=== PATIENT | male | born 1960 | race Caucasian/White ===

== ENCOUNTER 2022-12-26 00:24 | Outpatient (CLI) | payer MEDICAID, SELFPAY ==
--- NOTE | 2022-12-26 09:45 | DI.RAD_ITS ---
Exam(s) RF MODIFIED SPEECH BA SWALLOW TECHNIQUE: Modified barium swallow was performed in conjunction with speech pathology. CONTRAST MATERIAL: Multiple consistencies of barium contrast were administered. COMPARISON: No exams were available for comparison FINDINGS: Note that this is not a dedicated esophagram, distal esophagus not evaluated. Significant vallecular pooling was demonstrated with multiple consistencies. Mild laryngeal penetrat ion observed with thin liquid. Detailed speech pathology report to follow. . .. RADIATION DOSE DELIVERED: johnna Palacio=13.5 mGy
[2022-12-26] MEDS: Barium Sulfate 81% w/w for Oral Suspension 148 GM BTL PO (09:51)
[2022-12-26] MEDS: Barium Sulfate 40% W/V 1500 CPS 250 ML BTL PO (09:54)
[2022-12-26] MEDS: Barium Sulfate 40% W/V 240 ML BTL PO (09:54)
[2022-12-26] MEDS: Barium Sulfate Oral Paste 40% W/V 230 ML TUBE PO (09:55)
--- NOTE | 2022-12-26 12:11 | ST.MBS_ITS ---
Date of Service Date of service: 12/26/22 Time of Service: 09:00 Modified Barium Swallow Study Findings: Video fluoroscopic Swallowing Evaluation (VFSE) / Modified Barium Swallow Study (MBSS) Speech Language Pathology Report Patient referred for VFSE/MBSS from Dr. Edwards ([facility]) given dysphagia in setting of hyperpharyngeal cancer and velo-pharyngeal insufficiency. 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 He had a 50lb loss prior to start of treatment, but has gained some back. He was seen inpatient in [place] by [employer]PER [facility]PER[facility] who recommended nectar thick liquids to him but at home he has been having honey thick. He will have mediport placed next week and is awaiting start of chemoradiotherapy at [facility] where he is followed by this [facility]KEEPER SUPERVISOR. [facility] Medical History?(Updated 12/27/22 @ 09:34 by Julianna Olivier NP) Adult failure to thrive H/O alcohol abuse Hernia Oropharyngeal cancer PTSD (post-traumatic stress disorder) Surgical History?(Updated 12/23/22 @ 10:23 by Yelitza Fernandez) H/O abdominal surgery H/O endoscopy IMPRESSIONS: Severe oropharyngeal dysphagia. Characterized primarily by absent posterior pharyngeal wall movement in the hyperpharynx, absent epiglottic inversion, as well as near-absent tongue base retraction. Velar elevation is also reduced, as is duration and extent of UES distension. All of these in combination significantly alter the pressure dynamics during the swallowing resulting in severe stasis of thick>liquid as well as puree textures in the hyperpharynx. Patient relies solely on gravity at this time to move bolus through hyperpharynx and benefits from posterior head tilt to encourage further posterior/inferior transit past & over the valleculae. Fortunately, the patient's laryngeal and hyoid movement appear to be relatively preserved at this time, he is likely only at risk penetration and microaspirations with liquids at this time which are cleared effectively with gentle throat clear strategy. Aspiration and deep penetration noted was largely on residue spilling over from valleculae after the swallow, therefore I think thin liquids will actually be his safest consistency at this time given higher viscosities resulted in greater amounts of residue. Patient appears to be at low-moderate risk for potential aspiration PNA and/or pulmonary compromise and high risk for malnutrition, high risk for dehydration. Diet modification is indicated; non-oral nutrition is indicated. Swallow prognosis is guarded given: extent of dysphagia present prior to cancer treatment, expected effects of radiotherapy. Positive prognostic factors: Age, Motivation, Family/caregiver support, Cognitive status, Negative prognostic factors: Severity, Relative dose of Chemotherapy and/or radiation treatment, Surgical/anatomical factors (tumor), and pending patient/caregiver training in risk management as outlined, including use of trialed compensatory strategies. Patient appears to be a good candidate for behavioral swallow rehabilitation. RECOMMENDATIONS: Diet Texture Recommendation:? IDDSI LEVEL SOLIDS 4-Pureed Solids - slick (like applesauce) 3-Liquidised Solids LIQUIDS 0-Thin Liquids Please see further details at?www.iddsi.org http://www.iddsi.org/ MEDICATIONS VIA ENTERAL ROUTE Diet texture modification is per patient's preference; please adjust diet textures at patient's discretion & collaboration with care team. Do not alter medications (e.g., cut)? without advice from your MD or pharmacist. Risk Management Strategies:? Behavioral reflux precautions, including upright position during + 90 mins after meals. Small bites, approx [id number] Perform posterior head tilt while swallowing. Remain with head tilted for several seconds, then re-swallow and repeat until sensation of residue has cleared. Very small sips, approx 5mL / teaspoon Perform gentle throat clears after liquid sips. Multiple swallows per bolus to encourage clearance of pharyngeal stasis/residue Alternate solids/liquids as able Control risk factors for aspiration pneumonia via (a) thorough oral hygiene & (b) maintaining physical mobility as tolerated PLAN: Therapy: Recommend subsequent outpatient session with [employer]KEEPER SUPERVISOR to review results of today's exam and develop treatment plan as appropriate. Goals: defer to [facility]EE[facility] SUPERVISOR plan of care Follow-up exam: Recommend repeat VFSE/MBSS upon completion of cancer treatment. ----- OBJECTIVE Videofluoroscopic Swallow Evaluation (VFSE/MBSS) was conducted in the lateral[ and [id number]] projection by Speech-Language Pathologist, in collaboration with Radiologist, to evaluate oropharyngeal swallow function. Anatomic view under fluoroscopy: Posterior prominences in proximal esophagus appearing to alter bolus flow (?osteophytes) PO Barium Contrast Trials Oral barium water-soluble contrast was administered as follows: IDDSI Level 0 Varibar thin liquid (40% w/v) IDDSI Level 2 Varibar nectar thick/mildly thick liquid (40% w/v) IDDSI Level 3 Varibar thin honey/liquidised/moderately-thick (40% w/v) IDDSI Level 4 Varibar pudding/pureed/extremely thick (40% w/v) No solid trials or barium tablet trials were administered do to severity of dysphagia. MBSImP Component Scores: COMPONENT Scale SCORE 1 Lip closure (0-4) 0 Resulted in no labial escape 2 Hold Position (0-3) 0 Maintained a cohesive bolus between tongue to palatal seal 3 Bolus Preparation (0-4) NA 4 Bolus Transport (0-4) 1 Demonstrated delayed initiation of tongue motion 5 Oral Residue (0-4) 1 Was a trace, lining oral structures 6 Swallow Initiation (0-4) 2 Occurred as bolus head at posterior laryngeal surface of epiglottis 7 Soft Palate Elevation (0-4) 2 Allowed escape to the nasopharynx 8 Laryngeal Elevation (0-3) 0 Demonstrated complete superior movement of thyro id cartilage with complete approximation of arytenoids to epiglottic petiole 9 Anterior Hyoid Motion (0-2) 0 Demonstrated complete anterior movement 10 Epiglottic Movement (0-2) 2 Resulted in no inversion 11 Laryngeal Closure (0-2) 1 Was incomplete with narrow a column of air/contra st in laryngeal vestibule 12 Pharyngeal Stripping Wave (0-2) 1 Was present, but diminished 13 Pharyngeal Contraction (0-3) NA 14 PES Opening (0-3) 1 Demonstrated partial distension/partial duration, with partial obstruction of flow 15 Tongue Base Retraction (0-4) 3 Allowed a wide column of contrast or air between the retracted tongue base and the posterior pharyngeal wall 16 Pharyngeal Residue (0-4) 4 Resulted from minimal to no pharyngeal clearance 17 Esophageal Clearance (0-4) NA Results: COMPONENT Scale SCORE 1 Oral Score (0-18) 3 2 Pharyngeal Score (0-29) 14 3 Esophageal Score (0-4) 0 Dysphagia Outcome and Severity Scale: COMPONENT l Scale SCORE 1 LEVEL (1-7) 2 Nonoral Nutrition Necessary - Moderate-severe dysphagia; Maxim um assistance or use of strategies with partial PO only (tolerates at least 1 consistency safely with total use of strategies) Penetration-Aspiration Scale: COMPONENT Scale SCORE 1 Thin liquid (1-8) 5 Contrast entered the airway, contacted the vocal folds, and was not ejected from the airway. 2 [place] thick (1-8) 3 Contrast entered the airway, remained above the vocal f olds, and was not ejected from the airway. 3 Honey thick (1-8) 1 Contrast did not enter the airway 4 Pudding thick (1-8) 1 Contrast did not enter the airway 5 Cookie (1-8) NA Functional Oral Intake Scale: COMPONENT Scale SCORE 1 Pre-Study (1-7) 2 Tube dependent with minimal/inconsistent oral intake 2 Post-Study (1-7) 2 Tube dependent with minimal/inconsistent oral intake DIGEST: COMPONENT Scale SCORE 1 Thin Max PAS (1-8) 5 Contrast entered the airway, contacted the vocal folds, and was not ejected from the airway. A 2 [place] Max PAS (1-8) 3 Contrast entered the airway, remained above the vocal folds, and was not ejected from the airway. 3 Honey Max PAS (1-8) 1 Contrast did not enter the airway 4 Liquid Max PAS (1-8) 5 Maximum PAS Score over all liquid trials 5 Liquid Max Residue (0-3) 2 50 - 90% 6 Pudding Max PAS (1-8) 1 Contrast did not enter the airway 7 Pudding Max Residue (0-3) 3 above 90% 8 Cracker Max PASA (1-8) NA 9 Cracker Max Residue (0-3) NA 10 Frequency if PAS >= 3 (0-3) 3 Chronic (50% or more of thin liquid trails and/or more than one consistency) 11 Amount if PAS >= 5 (0-1) 0I Not gross Results: COMPONENT Scale SCORE 1 SAFETY GRADE (0-4) 2 Safety grade for swallowing based on patterns of aspiration or laryngeal penetration 2 EFFICIENCY GRADE (0-4) 3 Efficiency grade of swallowing based on patterns of pharyngeal residue 3 DIGEST (0-4) 3 Severity grade of pharyngeal dysphagia: 0 - Normal, 1 - Mild, 2 - Moderate, 3 - Severe, 4 - Life threatening 4 Max Exam PAS (1-8) 5 Maximum PAS Score over all bolus trials 5 Max Exam Residue (0-3) 3 Maximum Exam Residue over all bolus trials Trialed Compensatory Strategies & Outcome: Maneuvers Successful (+) Unsuccessful (-) Postures Successful (+) Unsuccessful (-) 3 second Preparatory Set? ? +/- Chin Tuck Posture? ? - Cough? ? Posterior Head tilt?? ? + ? Reflexive? Cued? Throat Clear? ? Head Tilt to? Reflexive? Left? Cued? ? + (with liquids) ? Right? ? Saliva swallow? ? + Head Turn/Rotate to? B ? Supraglottic Swallow? Left? ? + Super-supraglottic Swallow? Right? ? Bolus Modifications Successful (+) Unsuccessful (-) Delivery/Alternating Consistencies ? Follow with Liquid Wash + (thin liquid) ? Follow with Solid Bolus? Delivery/Via Straw? ? Reduced Volume? ? + Reduced Rate of Intake? ? + (pause after primary swallow before swallowing again) Increased Viscosity? ? - Other:?? ? Thank you for allowing us to take part in this patient's care. Please feel free to contact the [facility] Speech Language Pathology Department with any questions/concerns. Coding CPT Codes MOTION FLUOROSCOPY/SWALLOW - [id number] ([id number])
== END 2022-12-26 00:44 ==
LOC: DI 00:24
PROVIDERS: PCP Internal Medicine; Visit Provider Speech-Language Pathologist
DX: R13.12 Dysphagia, oropharyngeal phase (principal)
CPT/HCPCS: 92611; 74221

== ENCOUNTER 2023-01-20 01:51 | Outpatient (RCR) | payer MEDICAID, SELFPAY ==
[2023-01-05] MEDS: Normal Saline Flush 10 ML SYR IVP (14:58)
[2023-01-05 15:17] LABS: Abs Immature Grans 0.01 10^3/uL (0.0-0.06); Absolute Basophil Count 0.03 10^3/uL (0.0-0.2); Absolute Eosinophil Count 0.11 10^3/uL (0.0-0.7); Absolute Lymphocyte Count 1.38 10^3/uL (1.2-3.4); Absolute Monocyte Count 0.52 10^3/uL (0.1-0.8); Absolute Neutrophil Count 3.95 10^3/uL (1.2-6.7); Basophils % 0.5; Eosinophils % 1.8; HCT 34.8 % (40.0-50.0); HGB 11.8 g/dL (13.5-17.5); Immature Grans % 0.2; MCH 33.8 pg (27.0-33.0); MCHC 33.9 % (32.0-36.0); MCV 100 fL (80-95); Monocytes % 8.7; Neutrophils % 65.8; Platelet Count 224 10^3/uL (130-400); RBC 3.49 10^6/uL (4.36-5.78); RDW 10.8 % (11.8-14.1); RDW-SD 39.5 fL
[2023-01-05 15:28] LABS: ALT 36 U/L (16-63); AST 26 U/L (15-37); Albumin 3.6 g/dL (3.4-5.0); Alkaline Phosphatase 86 U/L (46-116); Anion Gap 8.3 mmol/L (3-11); BUN 21 mg/dL (7-18); Bilirubin, Total 0.8 mg/dL (0.2-1.0); CO2 28.7 mmol/L (21.0-32.0); CREATININE 1.2 mg/dL (0.70-1.30); Chloride 102 mmol/L (98-107); Estimated GFR 68.38 (mL/min/1.73m2); Glucose 114 mg/dL (74-106); Magnesium 2.1 mg/dL (1.8-2.4); Potassium 3.6 mmol/L (3.5-5.1); Sodium 139 mmol/L (136-145); Total Protein 7.6 g/dL (6.4-8.2)
[2023-01-13] MEDS: Normal Saline Flush 10 ML SYR IVP (10:13)
[2023-01-13 10:18] LABS: Abs Immature Grans 0.01 10^3/uL (0.0-0.06); Absolute Basophil Count 0.02 10^3/uL (0.0-0.2); Absolute Eosinophil Count 0.04 10^3/uL (0.0-0.7); Absolute Lymphocyte Count 0.87 10^3/uL (1.2-3.4); Absolute Monocyte Count 0.38 10^3/uL (0.1-0.8); Absolute Neutrophil Count 3.53 10^3/uL (1.2-6.7); Basophils % 0.4; Eosinophils % 0.8; HCT 33.7 % (40.0-50.0); HGB 11.3 g/dL (13.5-17.5); Immature Grans % 0.2; Lymphocytes % 17.9; MCH 33.6 pg (27.0-33.0); MCHC 33.5 % (32.0-36.0); MCV 100 fL (80-95); MPV 11.1 fL (8.0-11.0); Monocytes % 7.8; Neutrophils % 72.9; Platelet Count 144 10^3/uL (130-400); RBC 3.36 10^6/uL (4.36-5.78); RDW 10.5 % (11.8-14.1); RDW-SD 38.9 fL; WBC 4.85 10^3/uL (4.4-10.8)
[2023-01-13 10:33] LABS: ALT 40 U/L (16-63); AST 25 U/L (15-37); Albumin 3.3 g/dL (3.4-5.0); Alkaline Phosphatase 65 U/L (46-116); Anion Gap 6.6 mmol/L (3-11); BUN 32 mg/dL (7-18); Bilirubin, Total 0.8 mg/dL (0.2-1.0); CO2 31.4 mmol/L (21.0-32.0); CREATININE 1.1 mg/dL (0.70-1.30); Calcium 8.8 mg/dL (8.5-10.1); Chloride 101 mmol/L (98-107); Glucose 117 mg/dL (74-106); Magnesium 2.1 mg/dL (1.8-2.4); Sodium 139 mmol/L (136-145)
== END 2023-01-23 23:59 | disposition home or self-care (01) ==
LOC: INF 01:51
PROVIDERS: PCP Internal Medicine; Visit Provider Preventive Medicine Undersea and Hyperbaric Medicine
DX: Z45.2 Encounter for adjustment and management of vascular access device (principal); C10.9 Malignant neoplasm of oropharynx, unspecified
CPT/HCPCS: 36591; 80053; 83735; 85025

== ENCOUNTER 2023-01-20 16:21 | Observation (INO) | payer MEDICAID, SELFPAY ==
[2023-01-20] VITALS (26 sets, daily range): BP systolic 118–148; BP diastolic 67–95; PULSE 81–110; RESP 9–26; TEMP 36.5–38.6; O2SAT 95–100
--- NOTE | 2023-01-20 16:30 | DI.CT_ITS ---
Exam(s) CT NECK W EXAM: CT NECK W CLINICAL HISTORY: right submaxiallry swelling tenderness. TECHNIQUE: Imaging Protocol: Axial computed tomography images with coronal and sagittal reformatted images were created and reviewed. CONTRAST MATERIAL: Intravenous: Omnipaque 350 Contrast volume:100mL COMPARISON: RF RF MODIFIED SPEECH BA SWALLOW from 12/26/2022 FINDINGS: Orbits and orbital soft tissues: Within normal limits. Visualized paranasal sinuses: Within normal limits. Nasopharynx: There is mucosal thickening seen in the maxillary sinuses bilaterally. Rounded soft ti ssues present which may reflect mucous retention cysts or polyps in the maxillary sinuses. The remai chanell visualized paranasal sinuses and mastoid air cells are clear. Oropharynx: Within normal limits. Hypopharynx: There is asymmetric enlargement of the right palatine tonsillar tissues. Larynx: Within normal limits. Retropharyngeal space: Within normal limits. Parotids/submandibular: The right submandibular gland is smaller than the left.. There is asymmetri c enlargement and heterogeneity of the right parotid gland. The left parotid gland is unremarkable. There is a 3 mm calcification on the right side in the floor the mouth. Thyroid gland: Within normal limits. Lymphadenopathy: There is scattered lymph nodes seen along the level one to level three all measurin g less than 8 mm in short axis diameter which are physiologic in nature. Trachea: Within normal limits. Lung apices: Within normal limits. Bones: Within normal limits for the patient's age. No aggressive osseous lesions are seen. Carotids/Jugular: Within normal limits. Soft tissues: There is asymmetric thickening of the right platysma with infiltration of the subcuta neous fat extending from the parotid gland into the submental region. No focal wall enhancing lesion is seen to suggest an abscess. There are mildly enlarged lymph nodes in the neck which are likely r eactive. There is a right-sided infusion port. IMPRESSION: 1. Enlarged heterogeneous right parotid gland with infiltration of the subcutaneous tissues extending from the parotid gland to the submental region. There is also asymmetric thickening of the right pl atysma. Mildly enlarged lymph nodes are seen in the neck predominantly on the right. The findings r aise a question inflammatory/infectious process. This may represent an acute right parotiditis. 2. 3 mm calcification in the right floor the mouth. This may represent a calculus. 3. Asymmetric enlargement of the right palatine tonsils. This may be an infectious or inflammatory p rocess. Neoplastic process cannot be excluded. Please correlate clinically. ENT consult may be con sidered for further evaluation. RADIATION DOSE DELIVERED: 634.16mGy.cm Total DLP 634.16mGy.cm Total DLP DATA REPOSITORY: All CT scans at this facility are submitted to the National Radiology Data Registry (NRDR) Dose Index Registry (DIR) with the [employer] (A[employer]). RADIATION OPTIMIZATION: All CT scans at this facility use at least one of these dose optimization te chniques: automated exposure control; mA and/or kV adjustment per patient size (includes targeted exa ms where dose is matched to clinical indication); or iterative reconstruction.
--- NOTE | 2023-01-20 17:05 | ED.GENADUL_ITS ---
Discharge Plan Disposition Patient Disposition: Admit to [facility] Discharge Details Clinical Impression: Infectious parotitis, Oropharyngeal cancer Primary Care Provider: Rahul Green ED Provider: Dandre Greene Home Meds and New Rx's Prescriptions: Continued acetaminophen 650 mg/20.3 mL suspension 650 mg PO Q6H PRN chlorhexidine gluconate 0.12 % mouthwash 15 ml mucous membrane DAILY Patient Comments: not taking ibuprofen 100 mg/5 mL suspension 200 mg PO Q6H cephalexin 500 mg capsule 500 mg PO QID Patient Comments: not on med list sennosides [senna] 8.8 mg/5 mL syrup 8.8 mg PO BID PRN (Reason: constipation) Qty: 200 2RF Patient Comments: not on [facility] med list acetaminophen 500 mg/15 mL liquid 500 - 1,000 mg PO Q6H PRN (Reason: fever or pain) Qty: 237 2RF oxycodone 5 mg tablet 5 mg PO BID MDD 15mg PRN (Reason: pain) Qty: 60 0RF olanzapine 5 mg Tablet 5 mg feeding tube DAILY oxycodone 5 mg/5 mL Solution 5 mg feeding tube Q6H PRN pantoprazole [address] For Susp In Packet 40 mg feeding tube DAILY fentanyl 25 mcg/hr patch 72 hour 2 patch transdermal Q72H MDD 1 patch Medical Decision Making Patient presents emergency department with a swollen right parotid gland that is progressing tender with generalized malaise and he is warm he is afebrile. Most likely this is bacterial. Diabetes and the patient had a CT scan of the neck and soft tissues which shows inflammation of the right parotid gland with surrounding erythema. Kayli was evaluated by me he does not have a high white count although he is getting chemotherapy but he has a left shift. Lactic acid was negative. He was giving IV fluids with vancomycin intravenously for he fa iled outpatient therapy with cephalexin. He will be need to be admitted to the hospital for continuation of IV vancomycin therapy to make sure that the gland inflammation reduces. Differential Diagnosis Differential Diagnosis: 1. Viral parotidis 2. Bacterial parotidis,3, abscess Medical Records Medical records reviewed: Yes I reviewed the patient's medical records. Imaging Data Radiologic Study: Imaging: CT Scan My impression: Uniform inflammation of the parotid gland on the right side of his face with swelling of the soft tissues Radiologist's impression: Cory Burroughs W??62??M??1960 ? Allergy/Adv: No Known Allergies Close Emergency Room Visit Notes (Draft) Dandre Greene - 01/20/23 17:05 Speech Modified Barium Swallow (Signed) Katharine Pantoja - 12/26/22 12:11 Audiology Office Visit (Signed) Yvonne Hawknis - 12/25/22 14:36 Palliative Care Note (Signed) Julianna Olivier - 12/24/22 15:21 Audiogram 12/24/22 Radiology Report (Signed) vrad,Reports - 01/20/23 18:[address] 01/20/23 16:30 Patient Name: Cory Burroughs Unit #: [id number] Loc: ER ? Ordering Provider:? Status: REG ER ? Primary Care Provider: Rahul Green Date of Exam: 01/20/23 Sex: M ? : 1960 Age: 62 ? Exam(s) PROCEDURE INFORMATION: Exam: CT Neck With Contrast Exam date and time: 01/20/2023 6:08 PM Age: 62 years old Clinical indication: Other: Right submaxillary swelling tenderness TECHNIQUE: Imaging protocol: Computed tomography of the neck with contrast. Radiation optimization: All CT scans at this facility use at least one of these dose optimization techniques: automated exposure control; mA and/or kV adjustment per patient size (includes targeted exams where dose is matched to clinical indication); or iterative reconstruction. Contrast material: OMNIPAQUE 350; Contrast volume: 100 ml; Contrast route: INTRAVENOUS (IV);? COMPARISON: RF MODIFIED SPEECH BA SWALLOW 12/26/2022 9:14 AM FINDINGS: Right Port-A-Cath partially visualized Pharynx:? Question mild asymmetric thickening in the right palatine tonsillar tissues. Larynx: Unremarkable. Epiglottis is normal. Prevertebral and retropharyngeal spaces: Unremarkable. Salivary glands:? Enlargement of the right parotid gland with increased attenuation and surrounding infiltration. Thickening of the overlying capsule and fluid extending into the right submandibular space. No mass identified.? Right submandibular gland appears atrophic. Possible calculus versus calcification in the right floor of mouth image 400 series 4. Left-sided parotid and submandibular glands are unremarkable Thyroid: Normal. No enlarged or calcified nodules.? Lymph nodes:? Prominent right submandibular lymph nodes. No lymphadenopathy. Trachea: Visualized trachea is unremarkable. Lungs: Unremarkable as visualized. Bones/joints: Unremarkable. No acute fracture. Soft tissues: Unremarkable. No significant soft tissue swelling. IMPRESSION: Findings suspect for right-sided parotiditis with fluid/inflammatory change tracking into the right submandibular space. Prominent right submandibular lymph nodes are presumed reactive Question asymmetric soft tissue in the right palatine tonsillar region. Correlation with direct inspection recommended. Local recurrence can not be completely excluded Right floor of mouth calcification versus calculus Dictated and Authenticated by: Chad Franklin MD. Ordering:JuliusOTFABIO Amos MD Ordered By:? CC: ? Lab Data Lab results reviewed: Yes I reviewed the patient's lab results. Lab results narrative: As described above the patient has no white count but has a left shift HPI General Date/Time Provider Initiated Documentation: 01/20/23 16:43 . HPI Narrative: Patient presents emergency department complaining of 3 days of swelling in the right face and parotid gland area that started gradually and now is tender and red. Denies any fevers or chills. Patient's been treated with chemotherapy and radiation for oropharyngeal cancer he does complain of being feeling malaise an d states that his primary care doctor ordered some cephalexin but states is not working. Related Data Home Medications Medication Instructions Recorded Confirmed acetaminophen 650 mg/20.3 mL oral 650 mg PO Q6H PRN 12/23/22 01/20/23 suspension cephalexin 500 mg capsule 500 mg PO QID 12/23/22 12/24/22 chlorhexidine gluconate 0.12 % 15 ml mucous membrane DAILY 12/23/22 01/20/23 mouthwash ibuprofen 100 mg/5 mL oral 200 mg PO Q6H 12/23/22 01/20/23 suspension sennosides 8.8 mg/5 mL oral syrup 8.8 mg (5 mL) PO BID PRN 12/24/22 12/24/22 (senna) constipation #200 mL acetaminophen 500 mg/15 mL oral 500 - 1,000 mg (15 - 30 mL) PO Q6H 01/13/23 01/20/23 liquid PRN fever or pain #237 mL oxycodone 5 mg tablet 5 mg PO BID PRN pain #60 tabs 01/13/23 fentanyl 25 mcg/hr transdermal 2 patch transdermal Q72H 01/20/23 01/20/23 patch olanzapine 5 mg tablet 5 mg feeding tube DAILY 01/20/23 01/20/23 oxycodone 5 mg/5 mL oral solution 5 mg feeding tube Q6H PRN 01/20/23 01/20/23 pantoprazole 40 mg granules 40 mg feeding tube DAILY 01/20/23 01/20/23 delayed-release for susp in packet Previous Rx's Medication Instructions Recorded sennosides 8.8 mg/5 mL oral syrup 8.8 mg (5 mL) PO BID PRN 12/24/22 (senna) constipation #200 mL acetaminophen 500 mg/15 mL oral 500 - 1,000 mg (15 - 30 mL) PO Q6H 01/13/23 liquid PRN fever or pain #237 mL oxycodone 5 mg tablet 5 mg PO BID PRN pain #60 tabs 01/13/23 Allergies Allergy/AdvReac Type Severity Reaction Status Date / Time No Known Allergies Allergy Verified 01/20/23 16:32 General Stated Complaint: FacialProb LJ: 3 Review of Systems All systems reviewed & are unremarkable except as noted in HPI and below Constitutional Constitutional: Reports as per HPI Eyes Eyes: Reports as per HPI ENT Ears, Nose, Mouth, and Throat: Reports system reviewed and no additional complaints, except as documented and Reports as per HPI Cardiovascular Cardiovascular: Reports as per HPI and Reports system reviewed and no additional complaints, except as documented Respiratory Respiratory: Reports as per HPI and Reports system reviewed and no additional complaints, except as documented Gastrointestinal Gastrointestinal: Reports as per HPI and Reports system reviewed and no additional complaints, except as documented Genitourinary Genitourinary: Reports system reviewed and no additional complaints, except as documented Musculoskeletal Musculoskeletal: Reports system reviewed and no additional complaints, except as documented Neurologic Neurologic: Reports system reviewed and no additional complaints, except as documented Psychiatric Psychiatric: Reports system reviewed and no additional complaints, except as documented PFSH All Active Problems (Updated 01/20/23 @ 18:56 by Dandre Greene MD) Infectious parotitis (Acute) Oropharyngeal cancer (Acute) Dysphagia (Acute) Unintentional weight loss (Acute) Advance care planning (Acute) Cancer related pain (Acute) Insomnia (Acute) Medical History Adult failure to thrive H/O alcohol abuse Hernia PTSD (post-traumatic stress disorder) Surgical History H/O abdominal surgery H/O endoscopy Family History Father Prostate cancer Paternal Grandfather Lung cancer Maternal Grandfather Lung cancer Social History Smoking/Tobacco Use Status: Never Smoking risk assessment performed?: Yes Alcohol Intake: former Drug use: Never Substance use type: does not use Do you feel safe at home: Yes Exam Narrative Exam Narrative: Exam; vitals signs as reported above Constitutional; In no acute distress, afebrile General: cooperative, healthy appearing, comfortable and no acute distress HENMT: Head: normal to inspection, no palpable skull fracture and normocephalic Eyes: l: appearance normal, both eyes and all related structures ]Pupils: PERRL EOM: EOM intact bilaterally hyperemia of the posterior oropharynx no tonsillar enlargement Direct ophthalmoscopy: normal light reflex, normal conjunctiva, normal visual acuity Neck no JVD, supple Neck: Swollen very tender right parotid gland with surrounding redness Chest Chest: normal inspection of the chest Respiratory : normal respiratory effort and able to speak in complete sentences Cardio Rate: regular rate Rhythm: regular rhythm normal heart sounds S1 and S2 no murmurs, gallops, or rubs GI Inspection: normal to inspection, normal bowel sounds, soft, non tender, non distended, no organomegally Back/Spine/ no CVA tenderness Thoracic/Lumbar Spine: no tenderness or deformities Skin no rashes or lesions Neuro: patient alert and no meningeal signs, Cranial Nerves: CN's II-XI intact bilaterally, Cognition: normal cognition, Speech: speech normal, Gait: normal gait, Depp tendon reflexes normal 2+ Extremities, no edema, full range of motion, normal strength Course Patient with patient with most likely bacterial peritonitis who got a CT of the diet that shows inflammation of the right parotid gland. Denies any pain was given IV fluids and will be given IV vancomycin for the infection. Vital Signs Vital signs: Vital Signs Temperature 36.5 C 01/20/23 16:25 Pulse 84 01/20/23 16:25 Respiratory Rate 18 01/20/23 16:25 Blood Pressure 148/70 H 01/20/23 16:25 Pulse Oximetry 97 01/20/23 16:25 Temperature 36.5 C 01/20/23 16:25 Temperature Source Oral 01/20/23 16:25 Pulse 84 01/20/23 16:25 Respiratory Rate 18 01/20/23 16:25 Respiratory Effort Normal 01/20/23 16:32 Blood Pressure 148/70 H 01/20/23 16:25 Blood Pressure Position Supine 01/20/23 16:25 Pulse Oximetry 97 01/20/23 16:25 Oxygen Delivery Method Room Air 01/20/23 16:25 Oxygen Flow Rate 0 01/20/23 16:25 Pain Level 5 01/20/23 16:32 Lab/Test Results Lab/Test Results: 01/20/23 17:00 Blood Blood Culture - Pending 01/20/23 17:00 Blood Blood Culture - Pending Vital Signs & Lab Results Vital Signs Most Recent Vital Signs: Most Recent Vital Signs Temp Pulse Resp BP Pulse Ox 36.5 C 88 16 118/95 H 96 01/20/23 16:25 01/20/23 18:19 01/20/23 18:40 01/20/23 18:19 01/20/23 18:40 Point of Care Results Nursing Point of Care Results: No Data to Display Lab Results 01/20/23 17:15 01/20/23 17:15 Blood Type / Crossmatch: No Data to Display Complete Blood Count: White Blood Count 4.14 10^3/uL (4.4-10.8) L 01/20/23 17:15 Red Blood Count 3.24 10^6/uL (4.36-5.78) L 01/20/23 17:15 Hemoglobin 10.9 g/dL (13.5-17.5) L 01/20/23 17:15 Hematocrit 32.9 % (40.0-50.0) L 01/20/23 17:15 Platelet Count 132 10^3/uL (130-400) 01/20/23 17:15 Venous Blood Lactate 0.8 mmol/L (0.6-1.4) 01/20/23 17:17 Complete Metabolic Panel: Sodium 137 mmol/L (136-145) 01/20/23 17:15 Potassium 4.2 mmol/L (3.5-5.1) 01/20/23 17:15 Chloride 101 mmol/L (98-107) 01/20/23 17:15 Carbon Dioxide 29.8 mmol/L (21.0-32.0) 01/20/23 17:15 BUN 23 mg/dL (7-18) H 01/20/23 17:15 Creatinine 0.9 mg/dL (0.70-1.30) 01/20/23 17:15 Est GFR (CKD-EPI 2020) 96.57 (mL/min/1.73m2) 01/20/23 17:15 Magnesium 2.1 mg/dL (1.8-2.4) 01/13/23 10:07 Calcium 8.8 mg/dL (8.5-10.1) 01/20/23 17:15 Albumin 3.0 g/dL (3.4-5.0) L 01/20/23 17:15 Glucose 108 mg/dL (74-106) H 01/20/23 17:15 Liver Function Panel: Alanine Aminotransferase (ALT/SGPT) 22 U/L (16-63) 01/20/23 17: 15 Aspartate Amino Transf (AST/SGOT) 15 U/L (15-37) 01/20/23 17:15 Coagulation Panel: INR International Normalized Ratio 0.9 (0.9-1.1) 01/20/23 17:1 5 Prothrombin Time 9.5 sec (9.3-11.0) 01/20/23 17:15 Cardiac Panel: No Data to Display Arterial Blood Gas: No Data to Display Venous Blood Gas: No Data to Display Pancreas Panel: No Data to Display Thyroid Panel: No Data to Display Infectious Disease: No Data to Display Blood Cultures: No Data to Display Toxicology Panel: No Data to Display
[2023-01-20] MEDS: Normal Saline 1,000 ML 1000 ML IV (17:10)
[2023-01-20 17:23] LABS: Lactate 0.8 mmol/L (0.6-1.4)
[2023-01-20 17:32] LABS: Absolute Basophil Count 0.01 10^3/uL (0.0-0.2); Absolute Eosinophil Count 0.03 10^3/uL (0.0-0.7); Absolute Lymphocyte Count 0.35 10^3/uL (1.2-3.4); Absolute Monocyte Count 0.32 10^3/uL (0.1-0.8); Absolute Neutrophil Count 3.43 10^3/uL (1.2-6.7); Basophils % 0.2; Eosinophils % 0.7; HCT 32.9 % (40.0-50.0); HGB 10.9 g/dL (13.5-17.5); Lymphocytes % 8.5; MCH 33.6 pg (27.0-33.0); MCHC 33.1 % (32.0-36.0); MCV 102 fL (80-95); MPV 11.4 fL (8.0-11.0); Monocytes % 7.7; Neutrophils % 82.9; Platelet Count 132 10^3/uL (130-400); RBC 3.24 10^6/uL (4.36-5.78); RDW 10.7 % (11.8-14.1); RDW-SD 39.7 fL; WBC 4.14 10^3/uL (4.4-10.8)
[2023-01-20 17:41] LABS: ALT 22 U/L (16-63); AST 15 U/L (15-37); Alkaline Phosphatase 68 U/L (46-116); Anion Gap 6.2 mmol/L (3-11); BUN 23 mg/dL (7-18); Bilirubin, Total 0.9 mg/dL (0.2-1.0); CO2 29.8 mmol/L (21.0-32.0); CREATININE 0.9 mg/dL (0.70-1.30); Calcium 8.8 mg/dL (8.5-10.1); Chloride 101 mmol/L (98-107); Estimated GFR 96.57 (mL/min/1.73m2); Glucose 108 mg/dL (74-106); INR 0.9 (0.9-1.1); Potassium 4.2 mmol/L (3.5-5.1); Prothrombin Time 9.5 sec (9.3-11.0); Sodium 137 mmol/L (136-145); Total Protein 6.9 g/dL (6.4-8.2)
[2023-01-20 17:51] LABS: Bilirubin Negative (Negative); Blood Negative (Negative); Clarity Clear (Clear); Glucose Negative (Negative); Ketones Negative (Negative); Leukocyte Esterase Negative (Negative); Nitrite Negative (Negative); Specific Gravity 1.015 (1.005-1.025)
[2023-01-20] MEDS: Normal Saline - Diluent 50 ML VIAL IJ (18:09)
[2023-01-20] MEDS: Omnipaque 350 MG/ML 100 ML BTL IJ (18:10)
[2023-01-20] MEDS: Normal Saline Flush 10 ML SYR IVP (18:11)
--- NOTE | 2023-01-20 18:24 | DI.VRAD_ITS ---
PROCEDURE INFORMATION: Exam: CT Neck With Contrast Exam date and time: 01/20/2023 6:08 PM Age: 62 years old Clinical indication: Other: Right submaxillary swelling tenderness TECHNIQUE: Imaging protocol: Computed tomography of the neck with contrast. Radiation optimization: All CT scans at this facility use at least one of these dose optimization techniques: automated exposure control; mA and/or kV adjustment per patient size (includes targeted exams where dose is matched to clinical indication); or iterative reconstruction. Contrast material: OMNIPAQUE 350; Contrast volume: 100 ml; Contrast route: INTRAVENOUS (IV); COMPARISON: RF MODIFIED SPEECH BA SWALLOW 12/26/2022 9:14 AM FINDINGS: Right Port-A-Cath partially visualized Pharynx: Question mild asymmetric thickening in the right palatine tonsillar tissues. Larynx: Unremarkable. Epiglottis is normal. Prevertebral and retropharyngeal spaces: Unremarkable. Salivary glands: Enlargement of the right parotid gland with increased attenuation and surrounding infiltration. Thickening of the overlying capsule and fluid extending into the right submandibular space. No mass identified. Right submandibular gland appears atrophic. Possible calculus versus calcification in the right floor of mouth image 400 series 4. Left-sided parotid and submandibular glands are unremarkable Thyroid: Normal. No enlarged or calcified nodules. Lymph nodes: Prominent right submandibular lymph nodes. No lymphadenopathy. Trachea: Visualized trachea is unremarkable. Lungs: Unremarkable as visualized. Bones/joints: Unremarkable. No acute fracture. Soft tissues: Unremarkable. No significant soft tissue swelling. IMPRESSION: Findings suspect for right-sided parotiditis with fluid/inflammatory change tracking into the right submandibular space. Prominent right submandibular lymph nodes are presumed reactive Question asymmetric soft tissue in the right palatine tonsillar region. Correlation with direct inspection recommended. Local recurrence can not be completely excluded Right floor of mouth calcification versus calculus Dictated and Authenticated by: Chad Franklin MD. Ordering:JARRET Amos MD
--- NOTE | 2023-01-20 19:08 | W.PM.HP.N ---
Date of service: 01/20/23 Time of Service: 19:08 Assessment and Plan Assessment and plan (1) Infectious parotitis: Status: Acute Assessment and plan: Acute parotitis, presumably bacterial. Possible that radiation is predisposing factor. Will broaden coverage to include Gram negatives and anaerobes, Unasyn. Otherwise, pain control with usual regimen of APAP, Duragesic 25 and prn Oxycodone 10 q4-6 prn Reviewed ADs, requests Full Code History of Present Illness History of Present Illness Chief Complaint: facial pain Narrative: 62 male with h/o oropharngeal SSCA undergoing chemo and XTR. Here with 2 days of right sided face/jaw swelling and pain. As outpatient given Keflex(?) w/o help and presents for further evaluation. In ER findings of note for absence of fever, swelling of right parotid, white count 4.[address] demonstrating findings c/w acute partotitis. patient given Vanco loading dose and I was asked to evaluate for admission. Patient states he has a degree of baseline trismus with his cancer but this is notably worse, and involving right side of jaw as well, over past few days. denies fever or chills. Review of Systems Narrative: per HPI PFSH All Active Problems Infectious parotitis (Acute) Oropharyngeal cancer (Acute) Dysphagia (Acute) Unintentional weight loss (Acute) Advance care planning (Acute) Cancer related pain (Acute) Insomnia (Acute) Medical History Adult failure to thrive H/O alcohol abuse Hernia PTSD (post-traumatic stress disorder) Surgical History H/O abdominal surgery H/O endoscopy Family History Father Prostate cancer Paternal Grandfather Lung cancer Maternal Grandfather Lung cancer Social History Smoking/Tobacco Use Status: Never Smoking risk assessment performed?: Yes Alcohol Intake: former Drug use: Never Substance use type: does not use Do you feel safe at home: Yes Meds Allergies and Home Medications Allergies Allergy/AdvReac Type Severity Reaction Status Date / Time No Known Allergies Allergy Verified 01/20/23 16:32 Home Medications Medication Instructions Recorded Confirmed Type acetaminophen 650 mg/20.3 mL oral 650 mg PO Q6H PRN 12/23/22 01/20/23 History suspension cephalexin 500 mg capsule 500 mg PO QID 12/23/22 12/24/22 History chlorhexidine gluconate 0.12 % 15 ml mucous membrane DAILY 12/23/22 01/20/23 History mouthwash ibuprofen 100 mg/5 mL oral 200 mg PO Q6H 12/23/22 01/20/23 History suspension sennosides 8.8 mg/5 mL oral syrup 8.8 mg (5 mL) PO BID PRN 12/24/22 12/24/22 Rx (senna) constipation #200 mL acetaminophen 500 mg/15 mL oral 500 - 1,000 mg (15 - 30 mL) PO Q6H 01/13/23 01/20/23 Rx liquid PRN fever or pain #237 mL oxycodone 5 mg tablet 5 mg PO BID PRN pain #60 tabs 01/13/23 Rx fentanyl 25 mcg/hr transdermal 2 patch transdermal Q72H 01/20/23 01/20/23 History patch olanzapine 5 mg tablet 5 mg feeding tube DAILY 01/20/23 01/20/23 History oxycodone 5 mg/5 mL oral solution 5 mg feeding tube Q6H PRN 01/20/23 01/20/23 History pantoprazole 40 mg granules 40 mg feeding tube DAILY 01/20/23 01/20/23 History delayed-release for susp in packet Exam Narrative Exam Narrative: 118/95, 88, 36.5, 16, 96% RA. HEENT gross swelling right parotid w/o erythema, indurated, w/o fluctuance, moderately tender. Limited intraoral exam secondary to trismus but radiation changes evident, no d/c per Stensen's duct with parotid massage. Neck supple; lungs clear; hear RRR; abdomen soft and NT, G-tube in place; extremities w/o edema; neuro Ox3e, lucid, moves all 4s Results Labs 01/20/23 17:15 01/20/23 17:15 Labs: Laboratory Results - last 24 hr 01/20/23 01/20/23 01/20/23 17:15 17:15 17:15 WBC 4.14 L RBC 3.24 L Hgb 10.9 L Hct 32.9 L MCV 102 H MCH 33.6 H MCHC 33.1 RDW 10.7 L Plt Count 132 MPV 11.4 H Immature Gran % 0.0 Neutrophils % 82.9 Lymphocytes % 8.5 Monocytes % 7.7 Eosinophils % 0.7 Basophils % 0.2 Nucleated RBC % 0.0 Absolute Neutrophils 3.43 Absolute Lymphocytes 0.35 L Absolute Monocytes 0.32 Absolute Eosinophils 0.03 Absolute Basophils 0.01 PT 9.5 INR 0.9 VBG Lactate Sodium 137 Potassium 4.2 Chloride 101 Carbon Dioxide 29.8 Anion Gap 6.2 BUN 23 H Creatinine 0.9 Est GFR (CKD-EPI 2020) 96.57 Glucose 108 H Calcium 8.8 Total Bilirubin 0.9 AST 15 ALT 22 Alkaline Phosphatase 68 Total Protein 6.9 Albumin 3.0 L Urine Color Urine Clarity Urine pH Ur Specific [place] Urine Protein Urine Ketones Urine Blood Urine Nitrite Urine Bilirubin Urine Urobilinogen Ur Leukocyte Esterase Urine Glucose 01/20/23 01/20/23 17:17 17:40 WBC RBC Hgb Hct MCV MCH MCHC RDW Plt Count MPV Immature Gran % Neutrophils % Lymphocytes % Monocytes % Eosinophils % Basophils % Nucleated RBC % Absolute Neutrophils Absolute Lymphocytes Absolute Monocytes Absolute Eosinophils Absolute Basophils PT INR VBG Lactate 0.8 Sodium Potassium Chloride Carbon Dioxide Anion Gap BUN Creatinine Est GFR (CKD-EPI 2020) Glucose Calcium Total Bilirubin AST ALT Alkaline Phosphatase Total Protein Albumin Urine Color Yellow Urine Clarity Clear Urine pH 7.0 Ur Specific [place] 1.015 Urine Protein Negative Urine Ketones Negative Urine Blood Negative Urine Nitrite Negative Urine Bilirubin Negative Urine Urobilinogen 2.0 H Ur Leukocyte Esterase Negative Urine Glucose Negative Last Vital Signs Temp 36.5 C 01/20/23 16:25 Pulse 88 01/20/23 18:19 Resp 16 01/20/23 18:40 BP 118/95 H 01/20/23 18:19 Pulse Ox 96 01/20/23 18:40 Time Spent Time spent with Patient: 40-54 minutes Time was spent: preparing to see the patient(eg.review tests), obtaining and/or reviewing separately otained hiistory, ordering medications,tests, procedures, referring, communicating with other health day care home provider and indepentently interpreting results
[2023-01-20] MEDS: ACETAMINOPHEN 1,000 MG/100 ML BTL 400 MG IVPB (22:33)
[2023-01-20] MEDS: oxyCODONE 5 MG/5 ML CUP 10 MG PO (22:36)
[2023-01-20] MEDS: Pantoprazole 40 MG VIAL IVP (22:54)
[2023-01-20] MEDS: AMPICILLIN/SULBACTAM 3 GM in Normal Saline 100 ML IVPB (23:34)
[2023-01-21] MEDS: AMPICILLIN/SULBACTAM 3 GM in Normal Saline 100 ML IVPB (02:11)
[2023-01-21] MEDS: oxyCODONE 5 MG/5 ML CUP 10 MG PO ×2 (03:57→09:06)
[2023-01-21] MEDS: ACETAMINOPHEN 1,000 MG/100 ML BTL 400 MG IVPB (06:11)
[2023-01-21 06:49] VITALS: BP 112/67; PULSE 83; RESP 17; TEMP 37.5; O2SAT 94
[2023-01-21 07:13] LABS: Vancomycin, Random 8.2 ug/mL
--- NOTE | 2023-01-21 08:46 | INITIAL_ITS ---
Date of service: 01/21/23 Time of Service: 08:46 Care Management Initial Assmt Initial Assessment REASON FOR HOSPITALIZATION:: Infectious parotitis PREVIOUS FUNCTIONAL STATUS/SOCIAL/FAMILY SUPPORTS:: Oleksandr lives in [facility] and is currently renting an apartment in [facility] while he is undergoing treatment at [facility] for Oropharyngeal cancer. 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 He is independent with his ADL's at baseline. Has patient been provided with info about the portal/API?: Yes Did the patient sign up for the portal?: Yes (Prior to admission) CODE STATUS:: Full Code INSURANCE COVERAGE / FINANCIAL ISSUES:: [employer] [facility] plan only PFSH All Active Problems Infectious parotitis (Acute) Oropharyngeal cancer (Acute) Dysphagia (Acute) Unintentional weight loss (Acute) Advance care planning (Acute) Cancer related pain (Acute) Insomnia (Acute) Medical History Adult failure to thrive H/O alcohol abuse Hernia PTSD (post-traumatic stress disorder) Surgical History H/O abdominal surgery H/O endoscopy Family History Father Prostate cancer Paternal Grandfather Lung cancer Maternal Grandfather Lung cancer Social History Smoking/Tobacco Use Status: Never Smoking risk assessment performed?: Yes Alcohol Intake: former Drug use: Never Substance use type: does not use Do you feel safe at home: Yes
[2023-01-21] MEDS: VANCOMYCIN/WATER (PEG) 1 GM/200 ML BAG IVPB (09:06)
[2023-01-21] MEDS: OLANZapine 5 MG TAB JT (09:07)
--- NOTE | 2023-01-21 10:52 | W.PM.DS.N ---
Date of service: 01/21/23 Time of Service: 10:52 DS: Diagnosis Discharge Diagnosis (1) Infectious parotitis: Status: Acute Discharge Plan Disposition Patient Disposition: Home Condition: Stable Discharge Details Reason For Visit: Parotitis Admit Date/Time: 01/20/23 19:22 Admit Provider: Jamel Esparza Attending Provider: Jamel Esparza Primary Care Provider: Rahul Green [facility] Hospital Course: This is a 62-year-old male patient with history of oropharyngeal squamous cell carcinoma who is currently undergoing treatment with radiation and chemo followed by the local oncology services who presented to the emergency department with worsening right-sided facial pain and swelling being treated for right parotitis outpatient with cephalexin. His symptoms worsen so he presented to the emergency department where he was started on IV Unasyn. He was admitted to hospitalist services overnight his symptoms markedly improved and he was requesting discharged home. He will be discharged home on Augmentin will follow-up outpatient with his oncology team advised to return here sooner for new or worsening symptoms Discharge discussed with Dr. Chen Manvel Meds and New Rx's Prescriptions: New amoxicillin-pot clavulanate [Augmentin] 250-62.5 mg/5 mL suspension for reconstitution 10 ml PO TID Qty: 300 0RF Continued acetaminophen 650 mg/20.3 mL suspension 650 mg PO Q6H PRN chlorhexidine gluconate 0.12 % mouthwash 15 ml mucous membrane DAILY Patient Comments: not taking ibuprofen 100 mg/5 mL suspension 200 mg PO Q6H sennosides [senna] 8.8 mg/5 mL syrup 8.8 mg PO BID PRN (Reason: constipation) Qty: 200 2RF Patient Comments: [place] [facility] [place] acetaminophen 500 mg/15 mL liquid 500 - 1,000 mg PO Q6H PRN (Reason: fever or pain) Qty: 237 2RF oxycodone 5 mg tablet 5 mg PO BID MDD 15mg PRN (Reason: pain) Qty: 60 0RF olanzapine 5 mg Tablet 5 mg feeding tube DAILY oxycodone 5 mg/5 mL Solution 5 mg feeding tube Q6H PRN pantoprazole [address] Price Susp In Packet 40 mg feeding tube DAILY fentanyl 25 mcg/hr patch 72 hour 2 patch transdermal Q72H MDD 1 patch Discontinued cephalexin 500 mg capsule 500 mg PO QID Patient Comments: not on med list No Action oxycodone 5 mg/5 mL solution 5 mg feeding tube Q6H MDD 20 ml PRN (Reason: pain) Qty: 500 0RF Rx Instructions: Palliative care patient. For cancer related pain. Discharge Instructions Instructions: Sialoadenitis (ED) Stand Alone Forms: Nursing Discharge Form Referrals: Rahul Green [Primary Care Provider] - (A nurse will call from DR Green in the next 1-2 days ) Activity:: Activity as Tolerated Equipment/Supplies:: No Equipment Needed Diet:: As Tolerated Discharge Orders Discharge Orders: Discharge Order (Routine); Ordered 01/21/23 Ordered By: Marcia Waldron Discharge Data Discharge Date/Time-TO BE ENTERED AT DEPARTURE: 01/21/23 11:57 DS: Summary Time Spent with Patient providing and/or coordinating discharge services: Less than 30 minutes Status at Discharge Functional status at discharge: independent ambulation Overall status at discharge: patient is progressing back to baseline Mental Status: mental status grossly normal Speech and Movement: speech and movement normal Mood: congruent mood Affect: normal affect Exam Const General: cooperative, comfortable and no acute distress Nutritional Appearance: average body habitus Orientation: alert, awake and oriented x3 HENMT Face and sinus: edema on the right and tenderness Mouth: moist mucous membranes abnormal Chest Chest: normal inspection of the chest Resp Effort & Inspection: normal respiratory effort Cardio Rate: regular rate Rhythm: regular rhythm GI Inspection: other (G-tube intact) Neuro General: patient alert, patient awake and patient oriented x3 Extrem General: normal to inspection, full ROM and no pedal edema Psych Mental Status: mental status grossly normal Speech and Movement: speech and movement normal Mood: congruent mood Affect: normal affect DS: Data Vitals/I&O Vitals and I&O: Vital Signs Temperature 37.5 C 01/21/23 06:49 Temperature Source Tympanic 01/21/23 06:49 Pulse 83 01/21/23 06:49 Pulse Rhythm Regular 01/21/23 08:00 Pulse 89 01/20/23 19:20 Respiratory Rate 17 01/21/23 06:49 Respiratory Effort Normal, Non-Labored 01/21/23 08:00 Respiratory Depth Normal 01/21/23 08:00 Respiratory Pattern Normal 01/21/23 08:00 Blood Pressure 112/67 01/21/23 06:49 Blood Pressure Mean 81 01/20/23 19:01 Blood Pressure Position Supine 01/20/23 16:25 Pulse Oximetry 94 01/21/23 06:49 Oxygen Delivery Method Room Air 01/21/23 06:49 Oxygen Flow Rate 0 01/21/23 06:49 Pain Level 3 01/21/23 09:06 Intake & Output 01/20/23 01/20/23 01/21/23 11:59 23:59 11:59 Intake Total 1850 / 1850 1010 / 1010 Output Total 850 / 850 Balance 1000 / 1000 1010 / 1010 Weight 91.3 kg Intake: IV 1350 / 1350 510 / 510 Intake, Tube Feeding Amount 500 / 500 500 / 500 Output: Urine 850 / 850 Other: Urine Appearance Clear Clear Comment pt voids in the toilet independently Stool Size Moderate Stool Characteristics Soft Formed Voiding Methods Toilet # Voids 2 Data Completed and Pending Labs on day of discharge: Labs from last 24 hours 01/21/23 01/20/23 01/20/23 06:13 17:40 17:17 WBC RBC Hgb Hct MCV MCH MCHC RDW Plt Count MPV Immature Gran % Neutrophils % Lymphocytes % Monocytes % Eosinophils % Basophils % Nucleated RBC % Absolute Neutrophils Absolute Lymphocytes Absolute Monocytes Absolute Eosinophils Absolute Basophils PT INR VBG Lactate 0.8 Sodium Potassium Chloride Carbon Dioxide Anion Gap BUN Creatinine Est GFR (CKD-EPI 2020) Glucose Calcium Total Bilirubin AST ALT Alkaline Phosphatase Total Protein Albumin Urine Color Yellow Urine Clarity Clear Urine pH 7.0 Ur Specific [place] 1.015 Urine Protein Negative Urine Ketones Negative Urine Blood Negative Urine Nitrite Negative Urine Bilirubin Negative Urine Urobilinogen 2.0 H Ur Leukocyte Esterase Negative Urine Glucose Negative Random Vancomycin 8.2 01/20/23 01/20/23 01/20/23 17:15 17:15 17:15 WBC 4.14 L RBC 3.24 L Hgb 10.9 L Hct 32.9 L MCV 102 H MCH 33.6 H MCHC 33.1 RDW 10.7 L Plt Count 132 MPV 11.4 H Immature Gran % 0.0 Neutrophils % 82.9 Lymphocytes % 8.5 Monocytes % 7.7 Eosinophils % 0.7 Basophils % 0.2 Nucleated RBC % 0.0 Absolute Neutrophils 3.43 Absolute Lymphocytes 0.35 L Absolute Monocytes 0.32 Absolute Eosinophils 0.03 Absolute Basophils 0.01 PT 9.5 INR 0.9 VBG Lactate Sodium 137 Potassium 4.2 Chloride 101 Carbon Dioxide 29.8 Anion Gap 6.2 BUN 23 H Creatinine 0.9 Est GFR (CKD-EPI 2020) 96.57 Glucose 108 H Calcium 8.8 Total Bilirubin 0.9 AST 15 ALT 22 Alkaline Phosphatase 68 Total Protein 6.9 Albumin 3.0 L Urine Color Urine Clarity Urine pH Ur Specific [place] Urine Protein Urine Ketones Urine Blood Urine Nitrite Urine Bilirubin Urine Urobilinogen Ur Leukocyte Esterase Urine Glucose Random Vancomycin 01/20/23 17:15 Blood Blood Culture - Pending 01/20/23 17:00 Blood Blood Culture - Pending Preliminary micro results at discharge 01/20/23 17:15 Blood Culture - Pending Blood 01/20/23 17:00 Blood Culture - Pending Blood PFSH All Active Problems Infectious parotitis (Acute) Oropharyngeal cancer (Acute) Dysphagia (Acute) Unintentional weight loss (Acute) Advance care planning (Acute) Cancer related pain (Acute) Insomnia (Acute) Medical History Adult failure to thrive H/O alcohol abuse Hernia PTSD (post-traumatic stress disorder) Surgical History H/O abdominal surgery H/O endoscopy Family History Father Prostate cancer Paternal Grandfather Lung cancer Maternal Grandfather Lung cancer Social History Smoking/Tobacco Use Status: Never Smoking risk assessment performed?: Yes Alcohol Intake: former Drug use: Never Substance use type: does not use Do you feel safe at home: Yes Time Spent with Patient Time Spent with Patient: <45 minutes Time was spent: preparing to see the patient(eg.review tests), ordering medications,tests, procedures and counseling the patient
--- NOTE | 2023-01-21 11:07 | PDOC.CMDIS ---
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 Visits: 1 Answers: Total Score: 10 Risk of Readmission: High Risk Care Management Discharge Plan Reason for Hospitalization: Infectious parotitis Discharge Plan: Cory is discharged home via private vehicle with family. He will follow up with his outpatient providers and discharge plan of care as instructed. No VNA services are ordered prior to discharge. Patient/Family Education Needs: Review discharge instructions, limitations, medications and plan to follow up with community providers. Discuss ask me three.
== END 2023-01-21 11:57 | disposition home or self-care (01) | DRG 866 ==
LOC: ER 19:38 → MS 20:40
PROVIDERS: Admitting Provider General Practice; Emergency Provider Emergency Medicine Emergency Medical Services; PCP Internal Medicine; Visit Provider General Practice
DX: B26.9 Mumps without complication (principal); G89.3 Neoplasm related pain (acute) (chronic); C10.9 Malignant neoplasm of oropharynx, unspecified; Z79.899 Other long term (current) drug therapy; Z95.828 Presence of other vascular implants and grafts; R13.10 Dysphagia, unspecified; F43.10 Post-traumatic stress disorder, unspecified; F10.11 Alcohol abuse, in remission; G47.00 Insomnia, unspecified; R63.4 Abnormal weight loss; Z68.26 Body mass index [BMI] 26.0-26.9, adult
CPT/HCPCS: 36415; 70491; 80053; 87040; 99285; 80202; 81003; 83605; 85025; 85610; 99222; 99238; J0131; J0295; J3490

== ENCOUNTER 2023-02-16 03:56 | Outpatient (RCR) | payer MEDICAID, SELFPAY ==
[2023-01-26] MEDS: Normal Saline Flush 10 ML SYR IVP (09:01)
[2023-01-26 09:13] LABS: Abs Immature Grans 0.01 10^3/uL (0.0-0.06); Absolute Basophil Count 0.02 10^3/uL (0.0-0.2); Absolute Eosinophil Count 0.06 10^3/uL (0.0-0.7); Absolute Lymphocyte Count 0.32 10^3/uL (1.2-3.4); Absolute Monocyte Count 0.35 10^3/uL (0.1-0.8); Absolute Neutrophil Count 1.62 10^3/uL (1.2-6.7); Basophils % 0.8; Eosinophils % 2.5; HCT 31.7 % (40.0-50.0); HGB 10.5 g/dL (13.5-17.5); Immature Grans % 0.4; Lymphocytes % 13.4; MCH 32.9 pg (27.0-33.0); MCHC 33.1 % (32.0-36.0); MCV 99 fL (80-95); MPV 10.5 fL (8.0-11.0); Monocytes % 14.7; Neutrophils % 68.2; Platelet Count 199 10^3/uL (130-400); RBC 3.19 10^6/uL (4.36-5.78); RDW-SD 40.1 fL; WBC 2.38 10^3/uL (4.4-10.8)
[2023-01-26 09:33] LABS: ALT 24 U/L (16-63); AST 17 U/L (15-37); Albumin 3.3 g/dL (3.4-5.0); Alkaline Phosphatase 70 U/L (46-116); Anion Gap 7.5 mmol/L (3-11); BUN 24 mg/dL (7-18); Bilirubin, Total 0.6 mg/dL (0.2-1.0); CO2 28.5 mmol/L (21.0-32.0); Calcium 9.2 mg/dL (8.5-10.1); Chloride 101 mmol/L (98-107); Glucose 172 mg/dL (74-106); Magnesium 2.1 mg/dL (1.8-2.4); Potassium 3.7 mmol/L (3.5-5.1); Sodium 137 mmol/L (136-145); Total Protein 7.5 g/dL (6.4-8.2)
[2023-02-03] MEDS: Normal Saline Flush 10 ML SYR IVP (11:16)
[2023-02-03 11:29] LABS: Abs Immature Grans 0.01 10^3/uL (0.0-0.06); Absolute Basophil Count 0.02 10^3/uL (0.0-0.2); Absolute Eosinophil Count 0.01 10^3/uL (0.0-0.7); Absolute Lymphocyte Count 0.35 10^3/uL (1.2-3.4); Absolute Monocyte Count 0.43 10^3/uL (0.1-0.8); Absolute Neutrophil Count 3.27 10^3/uL (1.2-6.7); Basophils % 0.5; Eosinophils % 0.2; HCT 30.6 % (40.0-50.0); HGB 10.3 g/dL (13.5-17.5); Immature Grans % 0.2; Lymphocytes % 8.6; MCH 33.1 pg (27.0-33.0); MCHC 33.7 % (32.0-36.0); MCV 98 fL (80-95); MPV 10.5 fL (8.0-11.0); Monocytes % 10.5; Platelet Count 143 10^3/uL (130-400); RBC 3.11 10^6/uL (4.36-5.78); RDW 11.1 % (11.8-14.1); RDW-SD 39.5 fL; WBC 4.09 10^3/uL (4.4-10.8)
[2023-02-03 11:45] LABS: ALT 24 U/L (16-63); AST 21 U/L (15-37); Albumin 3.3 g/dL (3.4-5.0); Alkaline Phosphatase 79 U/L (46-116); Anion Gap 6.6 mmol/L (3-11); BUN 35 mg/dL (7-18); CO2 31.4 mmol/L (21.0-32.0); CREATININE 1.1 mg/dL (0.70-1.30); Calcium 9.1 mg/dL (8.5-10.1); Chloride 98 mmol/L (98-107); Glucose 119 mg/dL (74-106); Magnesium 1.7 mg/dL (1.8-2.4); Sodium 136 mmol/L (136-145); Total Protein 7.3 g/dL (6.4-8.2)
[2023-02-16 09:04] LABS: Abs Immature Grans 0.03 10^3/uL (0.0-0.06); Absolute Eosinophil Count 0.02 10^3/uL (0.0-0.7); Absolute Lymphocyte Count 0.33 10^3/uL (1.2-3.4); Absolute Monocyte Count 0.64 10^3/uL (0.1-0.8); Absolute Neutrophil Count 1.67 10^3/uL (1.2-6.7); Eosinophils % 0.7; HCT 26.6 % (40.0-50.0); HGB 9.1 g/dL (13.5-17.5); Immature Grans % 1.1; Lymphocytes % 12.3; MCHC 34.2 % (32.0-36.0); MCV 96 fL (80-95); MPV 9.8 fL (8.0-11.0); Monocytes % 23.8; Neutrophils % 62.1; Platelet Count 250 10^3/uL (130-400); RBC 2.76 10^6/uL (4.36-5.78); RDW 11.9 % (11.8-14.1); RDW-SD 41.2 fL; WBC 2.69 10^3/uL (4.4-10.8)
[2023-02-16] MEDS: Heparin 500 UNITS/5 ML SYRINGE IV (09:16)
[2023-02-16] MEDS: Normal Saline Flush 10 ML SYR IVP (09:16)
[2023-02-16 09:36] LABS: ALT 23 U/L (16-63); AST 13 U/L (15-37); Alkaline Phosphatase 59 U/L (46-116); Anion Gap 5.9 mmol/L (3-11); BUN 25 mg/dL (7-18); Bilirubin, Total 0.5 mg/dL (0.2-1.0); CO2 32.1 mmol/L (21.0-32.0); CREATININE 1.1 mg/dL (0.70-1.30); Calcium 9.1 mg/dL (8.5-10.1); Chloride 97 mmol/L (98-107); Glucose 93 mg/dL (74-106); Sodium 135 mmol/L (136-145); Total Protein 6.9 g/dL (6.4-8.2)
== END 2023-02-23 23:59 | disposition home or self-care (01) ==
LOC: INF 03:56
PROVIDERS: PCP Internal Medicine; Visit Provider Preventive Medicine Undersea and Hyperbaric Medicine
DX: Z45.2 Encounter for adjustment and management of vascular access device (principal); C10.9 Malignant neoplasm of oropharynx, unspecified
CPT/HCPCS: 36591; 80053; 83735; 85025

== ENCOUNTER 2023-03-23 02:06 | Outpatient (RCR) | payer MEDICAID, SELFPAY ==
[2023-02-24] MEDS: Heparin 500 UNITS/5 ML SYRINGE (12:44)
[2023-02-24] MEDS: Normal Saline Flush 10 ML SYR IVP (12:45)
[2023-02-24 16:09] LABS: Abs Immature Grans 0.02 10^3/uL (0.0-0.06); Absolute Basophil Count 0.01 10^3/uL (0.0-0.2); Absolute Lymphocyte Count 0.14 10^3/uL (1.2-3.4); Absolute Neutrophil Count 3.65 10^3/uL (1.2-6.7); Basophils % 0.2; HCT 27.1 % (40.0-50.0); HGB 9.1 g/dL (13.5-17.5); Immature Grans % 0.5; Lymphocytes % 3.3; MCHC 33.6 % (32.0-36.0); MCV 98 fL (80-95); MPV 10.6 fL (8.0-11.0); Monocytes % 9.5; Neutrophils % 86.5; Platelet Count 160 10^3/uL (130-400); RBC 2.76 10^6/uL (4.36-5.78); RDW 12.5 % (11.8-14.1); RDW-SD 44.5 fL; WBC 4.22 10^3/uL (4.4-10.8)
[2023-02-24 16:20] LABS: ALT 61 U/L (16-63); AST 25 U/L (15-37); Albumin 3.1 g/dL (3.4-5.0); Alkaline Phosphatase 70 U/L (46-116); Anion Gap 8.5 mmol/L (3-11); BUN 44 mg/dL (7-18); Bilirubin, Total 0.5 mg/dL (0.2-1.0); CO2 28.5 mmol/L (21.0-32.0); CREATININE 1.4 mg/dL (0.70-1.30); Chloride 99 mmol/L (98-107); Estimated GFR 56.83 (mL/min/1.73m2); Glucose 150 mg/dL (74-106); Magnesium 1.9 mg/dL (1.8-2.4); Sodium 136 mmol/L (136-145); Total Protein 7.2 g/dL (6.4-8.2)
[2023-03-02] MEDS: Normal Saline Flush 10 ML SYR IVP (09:30)
[2023-03-02 09:40] LABS: HCT 22.4 % (40.0-50.0); HGB 7.4 g/dL (13.5-17.5); MCH 32.2 pg (27.0-33.0); MCV 97 fL (80-95); MPV 10.3 fL (8.0-11.0); Platelet Count 133 10^3/uL (130-400); RDW 12.6 % (11.8-14.1); RDW-SD 43.8 fL
[2023-03-02] MEDS: Heparin 500 UNITS/5 ML SYRINGE IV (09:40)
[2023-03-02 09:55] LABS: ALT 34 U/L (16-63); AST 13 U/L (15-37); Albumin 2.7 g/dL (3.4-5.0); Alkaline Phosphatase 70 U/L (46-116); Anion Gap 10.5 mmol/L (3-11); BUN 28 mg/dL (7-18); CO2 25.5 mmol/L (21.0-32.0); CREATININE 1.3 mg/dL (0.70-1.30); Calcium 9.2 mg/dL (8.5-10.1); Chloride 97 mmol/L (98-107); Estimated GFR 62.11 (mL/min/1.73m2); Glucose 173 mg/dL (74-106); Magnesium 1.9 mg/dL (1.8-2.4); Potassium 3.8 mmol/L (3.5-5.1); Sodium 133 mmol/L (136-145); Total Protein 7.1 g/dL (6.4-8.2)
[2023-03-02 10:10] LABS: WBC 0.85 10^3/uL (4.4-10.8)
[2023-03-02 10:15] LABS: Bands % 6
[2023-03-02 10:16] LABS: Absolute Neutrophil Count 0.51 10^3/uL (1.2-6.7)
[2023-03-02 10:17] LABS: Absolute Basophil Count 0.02 10^3/uL (0.0-0.2); Absolute Lymphocyte Count 0.12 10^3/uL (1.2-3.4); Diff Comment Manual Differential; RBC Morphology Normal
[2023-03-23] MEDS: Normal Saline Flush 10 ML SYR IVP (08:50)
[2023-03-23] MEDS: Heparin 500 UNITS/5 ML SYRINGE IV (08:51)
[2023-03-23 09:01] LABS: Abs Immature Grans 0.05 10^3/uL (0.0-0.06); Absolute Basophil Count 0.03 10^3/uL (0.0-0.2); Absolute Eosinophil Count 0.03 10^3/uL (0.0-0.7); Absolute Lymphocyte Count 0.51 10^3/uL (1.2-3.4); Absolute Monocyte Count 0.76 10^3/uL (0.1-0.8); Absolute Neutrophil Count 5.13 10^3/uL (1.2-6.7); Basophils % 0.5; Eosinophils % 0.5; HCT 27.5 % (40.0-50.0); HGB 9.3 g/dL (13.5-17.5); Immature Grans % 0.8; Lymphocytes % 7.8; MCH 33.3 pg (27.0-33.0); MCHC 33.8 % (32.0-36.0); MCV 99 fL (80-95); MPV 9.8 fL (8.0-11.0); Monocytes % 11.7; Neutrophils % 78.7; Platelet Count 283 10^3/uL (130-400); RBC 2.79 10^6/uL (4.36-5.78); RDW 14.5 % (11.8-14.1); RDW-SD 51.9 fL; Reticulocyte 4.1 % (0.5-2.4); WBC 6.51 10^3/uL (4.4-10.8)
[2023-03-23 09:17] LABS: ALT 20 U/L (16-63); AST 16 U/L (15-37); Albumin 3.1 g/dL (3.4-5.0); Alkaline Phosphatase 83 U/L (46-116); Anion Gap 8.6 mmol/L (3-11); BUN 28 mg/dL (7-18); Bilirubin, Total 0.7 mg/dL (0.2-1.0); CO2 29.4 mmol/L (21.0-32.0); CREATININE 1.2 mg/dL (0.70-1.30); Calcium 9.4 mg/dL (8.5-10.1); Chloride 96 mmol/L (98-107); Estimated GFR 68.38 (mL/min/1.73m2); Glucose 137 mg/dL (74-106); Potassium 3.6 mmol/L (3.5-5.1); Sodium 134 mmol/L (136-145); Total Protein 7.6 g/dL (6.4-8.2)
== END 2023-03-26 23:59 | disposition home or self-care (01) ==
LOC: INF 02:06
PROVIDERS: PCP Internal Medicine; Visit Provider Preventive Medicine Undersea and Hyperbaric Medicine
DX: C10.9 Malignant neoplasm of oropharynx, unspecified (principal); Z45.2 Encounter for adjustment and management of vascular access device
CPT/HCPCS: 36591; 80053; 83735; 85025; 85045

== ENCOUNTER → 2023-04-22 01:18 | Outpatient (CLI) | payer MEDICAID, SELFPAY ==
--- NOTE | 2023-04-22 | DI.RAD_ITS ---
Exam(s) RF MODIFIED SPEECH BA SWALLOW TECHNIQUE: Modified barium swallow was performed in conjunction with speech pathology. CONTRAST MATERIAL: Oral barium contrast was administered. COMPARISON: No exams were available for comparison FINDINGS: Note that this is not a dedicated esophagram, distal esophagus not evaluated. There is aspiration to the examination of thin liquids and thickened liquids. The patient was able t o stimulated cough reflex. The examination was discontinued. Speech pathology report to follow. IMPRESSION: Aspiration of thin liquids and thickened liquids during the examination. RADIATION DOSE DELIVERED: johnna Palacio=4.33 mGy
--- NOTE | 2023-04-22 14:45 | ST.MBS_ITS ---
Date of Service Date of service: 04/22/23 Time of Service: 14:45 Modified Barium Swallow Study Findings: Video fluoroscopic Swallowing Evaluation (VFSE) / Modified Barium Swallow Study (MBSS) Speech Language Pathology Report Patient referred for VFSE/MBSS from Dr. Spear ([facility])? given dysphagia in setting of hyperpharyngeal cancer and velo-pharyngeal insufficiency. 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 He presented spring 2022 with dysphagia including s/sx aspiration and nasal regurgitation, odynophagia, and weight loss & protein calorie malnutrition requiring feeding tube placement. He had a 50lb loss prior to start of treatment. He was seen by [employer]S DEPARTMENT SUPERVISOR for MBSS at beginning of his cancer treatment and found with severe oral-pharyngeal dysphagia c/b absent posterior pharyngeal wall, epiglottic movement and reduced velar elevation and tongue base retraction. At that time he was safe for modest/conservative trials of thin liquids and purees with strict strategies and aspiration precautions in place. cancer treatment resulted in significant tumor shrinking, but patient is now without large section of R palate, and severely hypernasal speech and c/o nasal regurgitation. IMPRESSIONS: Profound oropharyngeal dysphagia with reduced function over comparison from 12/26/22. On exam today, he demonstrates significantly reduced hyo-laryngeal movement and near-absent UES distension resulting in consistent aspiration of both thin and moderately thick liquids after the swallow due to significant pyriform sinus residue. On previous exam he had relative strength in hyo- laryngeal excursion resulting in reduced but adequate UES distension to allow passage of liquids and puree bolus into esophagus without aspiration, and with safety strategies in place. Patient remains with absent posterior wall/tongue base approximation, absent epiglottic inversion as seen previously, resulting in significant persistent hyperpharyngeal stasis which is only able to transit the pharynx with gravity aided by head tilt. His presentation is of course also complicated by velo-pharyngeal changes and insufficiency altering pressure dynamics during the swallow. . Patient is at significant risk risk for potential aspiration PNA and/or pulmonary compromise and high risk for malnutrition, high risk for dehydration. Diet modification is indicated; non-oral nutrition is indicated. Swallow prognosis?is guarded given: severity of dysphagia prior to and after. Positive prognostic factors: Age, Motivation, Family/caregiver support, Cognitive status,? Negative prognostic factors: Severity, Relative dose of Chemotherapy and/or radiation treatment, Surgical/anatomical factors (tumor), and pending patient/caregiver training?in risk management as outlined, including use of trialed compensatory strategies. Patient appears to be a good candidate for behavioral swallow rehabilitation. RECOMMENDATIONS: Diet Texture Recommendation:? NPO - Alternative means of nutrition only. If excellent oral care is maintained, patient is safe to take conservative (2-3 small sips) water at a time throughout the day with safety strategies in place as below. MEDICATIONS VIA ENTERAL ROUTE SAFE SWALLOW STRATEGIES Tuck chin Swallow HARD Reduce distractions (TV, conversation) Very small sips (about a 1/4 tsp) Swallow 5+ times per sip. Clear throat gently and re-swallow throughout. Control risk factors for aspiration pneumonia via (a) thorough oral hygiene, (b) maintaining physical mobility as tolerated, and (c) reflux management. PLAN: Therapy Recommend subsequent outpatient session with [employer] DEPARTMENT SUPERVISOR to review results of today's exam and develop treatment plan as appropriate. Goals: defer to [facility] DE[employer]MENT SUPERVISOR plan of care Follow-up exam: Recommend repeat VFSE/MBSS as needed to assess for progress/decline OBJECTIVE Videofluoroscopic Swallow Evaluation (VFSE/MBSS) was conducted in the lateral projection by Speech-Language Pathologist, in collaboration with Radiologist, to evaluate oropharyngeal swallow function. PO Barium Contrast Trials Oral barium water-soluble contrast was administered as follows: IDDSI Level 0 Varibar thin liquid (40% w/v) IDDSI Level 3 Varibar thin honey/liquidised/moderately-thick (40% w/v) MBSImP Component Scores: COMPONENT Scale SCORE Previous SCORE0 1 Lip closure (0-4) 0 Resulted in no labial escape 0 Resulted in no labial escape 2 Hold Position (0-3) 0 Maintained a cohesive bolus between tongue to palatal seal 0 Maintained a cohesive bolus between tongue to palatal seal 3 Bolus Preparation (0-4) NA NA 4 Bolus Transport (0-4) 2 Was with slowed tongue motion 1 Demonstrated delaye d initiation of tongue motion 5 Oral Residue (0-4) 1 Was a trace, lining oral structures 1 Was a trace, selma ing oral structures 6 Swallow Initiation (0-4) 3 Occurred when the bolus head was in the pyriform sinuses 2 Occurred as bolus head at posterior laryngeal surface of epiglottis 7 Soft Palate Elevation (0-4) 2 Allowed escape to the nasopharynx 2 Allowed escape to the nasopharynx 8 Laryngeal Elevation (0-3) 1 Was decreased with partial superior movement of thyroid cartilage/partial approximation of arytenoids to epiglottic petiole 0 Demonstrated complete superior movement of thyroid cartilage with complete approximation of arytenoids to epiglottic petiole 9 Anterior Hyoid Motion (0-2) 1 Demonstrated partial anterior movement 0 Demonstrated complete anterior movement 10 Epiglottic Movement (0-2) 2 Resulted in no inversion 2 Resulted in no inversion 11 Laryngeal Closure (0-2) 1 Was incomplete with narrow a column of air/contrast in laryngeal vestibule 1 Was incomplete with narrow a column of air/contrast in laryngeal vestibule 12 Pharyngeal Stripping Wave (0-2) 2 Was absent 1 Was present, but diminished 13 Pharyngeal Contraction (0-3) NA NA 14 PES Opening (0-3) 3 Yielded no distension with total obstruction of flow 1 Demonstrated partial distension/partial duration, with partial obstruction of flow 15 Tongue Base Retraction (0-4) 3 Allowed a wide column of contrast or air between the retracted tongue base and the posterior pharyngeal wall 3 Allowed a wide column of contrast or air between the retracted tongue base and the posterior pharyngeal wall 16 Pharyngeal Residue (0-4) 4 Resulted from minimal to no pharyngeal clearance 4 Resulted from minimal to no pharyngeal clearance 17 Esophageal Clearance (0-4) NA NA Results: COMPONENT Scale SCORE Previous SCORE 1 Oral Score (0-18) 5 3 A 2 Pharyngeal Score (0-29) 19 14 3 Esophageal Score (0-4) 0 0 Dysphagia Outcome and Severity Scale: COMPONENT Scale SCORE Previous SCORE 1 LEVEL (1-7) 1 Nonoral Nutrition Necessary - Severe dysphagia; NPO and unable to tolerate any PO safely 2 Nonoral Nutrition Necessary - Moderate-severe dysphagia; Maximum assistance or use of strategies with partial PO only (tolerates at least 1 consistency safely with total use of strategies) Penetration-Aspiration Scale: COMPONENT Scale SCORE Previous SCORE 1 Thin liquid (1-8) 6 Contrast entered the airway, passed below the vocal folds, and was ejected into the larynx or out of the airway. 5 Contrast entered the airway, contacted the vocal folds, and was not ejected from the airway. 2 [place] thick (1-8) NA 3 Contrast entered the airway, remained above the vocal folds, and was not ejected from the airway. 3 Honey thick (1-8) 7 Contrast entered the airway, passed below the vocal folds, and was not ejected from the trachea despite effort. 1 Contrast did not enter the airway 4 Pudding thick (1-8) NA 1 Contrast did not enter the airway 5 Cookie (1-8) NA NA Functional Oral Intake Scale: COMPONENT Scale SCORE Previous SCORE 1 Pre-Study (1-7) 1 No oral intake 2 Tube dependent with minimal/inconsistent oral intake 2 Post-Study (1-7) 1 No oral intake 2 Tube dependent with minimal/inconsisten t oral intake DIGEST: COMPONENT Scale SCORE Previous SCORE 1 Thin Max PAS (1-8) 6 Contrast entered the airway, passed below the vocal folds, and was ejected into the larynx or out of the airway. 5 Contrast entered the airway, contacted the vocal folds, and was not ejected from the airway. 2 [place] Max PAS (1-8) NA 3 Contrast entered the airway, remained above the vocal folds, and was not ejected from the airway. 3 Honey Max PAS (1-8) 7 Contrast entered the airway, passed below the vocal folds, and was not ejected from the trachea despite effort. 1 Contrast did not enter the airway 4 Liquid Max PAS (1-8) 7 Maximum PAS Score over all liquid trials 5 5 Liquid Max Residue (0-3) 3 above 90% 2 50 - 90% 6 Pudding Max PAS (1-8) NA 1 Contrast did not enter the airway 7 Pudding Max Residue (0-3) NA 3 above 90% 8 Cracker Max PAS (1-8) NA NA 9 Cracker Max Residue (0-3) NA NA 10 Frequency if PAS >= 3 (0-3) 3 Chronic (50% or more of thin liquid trails and/or more than one consistency) 3 Chronic (50% or more of thin liquid trails and/or more than one consistency) 11 Amount if PAS >= 5 (0-1) 0 Not gross 0 Not gross Results: COMPONENT Scale SCORE Previous SCORE 1 SAFETY GRADE (0-4) 3 Safety grade for swallowing based on patterns of aspiration or laryngeal penetration 2 2 EFFICIENCY GRADE (0-4) 4 Efficiency grade of swallowing based on patterns of pharyngeal residue 3 3 DIGEST (0-4) 4 Severity grade of pharyngeal dysphagia: 0 - Normal, 1 - Mild, 2 - Moderate, 3 - Severe, 4 - Life threatening 3 4 Max Exam PAS (1-8) 7 Maximum PAS Score over all bolus trials 5 5 Max Exam Residue (0-3) 3 Maximum Exam Residue over all bolus trials 3 Trialed Compensatory Strategies & Outcome: Maneuvers Successful (+) Unsuccessful (-) Postures Successful (+) Unsuccessful (-) 3 second Preparatory Set ? Chin Tuck Posture + to reduce immediate risk of aspiration but due to poor pharyngeal clearance, risk remains present after swallow completion Cough? ? Posterior Head tilt?? - (previously this was a successful strategy to promote pharyngeal transit) ? Reflexive? + ? Cued? + ? ? Throat Clear? ? Head Tilt to ??Reflexive? Left? Cued? + ? Right? ? E Saliva swallow +? Head Turn/Rotate to Supraglottic Swallow ? Left? ? Super-supraglottic Swallow ? Right? ? Bolus Modifications Successful (+) Unsuccessful (-) Delivery/Alternating Consistencies ? Follow with Liquid Wash ? Follow with Solid Bolus? Delivery/Via Straw? ? Reduced Volume? ? Reduced Rate of Intake? ? Increased Viscosity? -? Other:?? ? Thank you for allowing us to take part in this patient's care. Please feel free to contact the [facility] Speech Language Pathology Department with any questions/concerns. Coding CPT Codes MOTION FLUOROSCOPY/SWALLOW - [id number] [id number])
[2023-04-22] MEDS: Barium Sulfate 40% W/V 1500 CPS 250 ML BTL PO (15:11)
[2023-04-22] MEDS: Barium Sulfate 81% w/w for Oral Suspension 148 GM BTL PO (15:12)
== END ==
PROVIDERS: PCP Internal Medicine; Visit Provider Preventive Medicine Undersea and Hyperbaric Medicine
DX: R13.12 Dysphagia, oropharyngeal phase (principal)
CPT/HCPCS: 92611; 74221

== ENCOUNTER 2023-05-18 09:28 | Outpatient (RCR) | payer MEDICAID, SELFPAY ==
[2023-05-18] MEDS: Heparin 500 UNITS/5 ML SYRINGE IV ×2 (09:55→11:40)
[2023-05-18] MEDS: Normal Saline Flush 10 ML SYR IVP ×2 (09:55→11:39)
[2023-05-18 11:54] LABS: Abs Immature Grans 0.02 10^3/uL (0.0-0.06); Absolute Basophil Count 0.01 10^3/uL (0.0-0.2); Absolute Eosinophil Count 0.04 10^3/uL (0.0-0.7); Absolute Lymphocyte Count 0.45 10^3/uL (1.2-3.4); Absolute Monocyte Count 0.31 10^3/uL (0.1-0.8); Absolute Neutrophil Count 3.52 10^3/uL (1.2-6.7); Basophils % 0.2; Eosinophils % 0.9; HCT 30.8 % (40.0-50.0); HGB 10.2 g/dL (13.5-17.5); Immature Grans % 0.5; Lymphocytes % 10.3; MCH 32.6 pg (27.0-33.0); MCHC 33.1 % (32.0-36.0); MCV 98 fL (80-95); MPV 10.2 fL (8.0-11.0); Monocytes % 7.1; Platelet Count 200 10^3/uL (130-400); RBC 3.13 10^6/uL (4.36-5.78); RDW 12.1 % (11.8-14.1); RDW-SD 43.6 fL; WBC 4.35 10^3/uL (4.4-10.8)
[2023-05-18 12:10] LABS: ALT 14 U/L (16-63); AST 14 U/L (15-37); Albumin 3.4 g/dL (3.4-5.0); Alkaline Phosphatase 79 U/L (46-116); Anion Gap 8.6 mmol/L (3-11); BUN 22 mg/dL (7-18); Bilirubin, Total 0.7 mg/dL (0.2-1.0); CO2 29.4 mmol/L (21.0-32.0); CREATININE 1.1 mg/dL (0.70-1.30); Calcium 9.7 mg/dL (8.5-10.1); Chloride 101 mmol/L (98-107); Estimated GFR 75.43 (mL/min/1.73m2); Glucose 117 mg/dL (74-106); Potassium 3.5 mmol/L (3.5-5.1); Sodium 139 mmol/L (136-145); Total Protein 7.7 g/dL (6.4-8.2)
== END 2023-05-26 23:59 | disposition home or self-care (01) ==
LOC: INF 09:28
PROVIDERS: PCP Internal Medicine; Visit Provider Internal Medicine Hematology & Oncology
DX: C10.9 Malignant neoplasm of oropharynx, unspecified (principal); Z45.2 Encounter for adjustment and management of vascular access device
CPT/HCPCS: 36591; 80053; 96523; 85025

== ENCOUNTER 2023-06-15 03:59 | Outpatient (RCR) | payer MEDICAID, SELFPAY ==
[2023-06-15 09:32] LABS: Abs Immature Grans 0.01 10^3/uL (0.0-0.06); Absolute Basophil Count 0.02 10^3/uL (0.0-0.2); Absolute Eosinophil Count 0.06 10^3/uL (0.0-0.7); Absolute Lymphocyte Count 0.57 10^3/uL (1.2-3.4); Basophils % 0.5; Eosinophils % 1.5; HCT 28.3 % (40.0-50.0); HGB 9.2 g/dL (13.5-17.5); Immature Grans % 0.3; Lymphocytes % 14.4; MCH 31.7 pg (27.0-33.0); MCHC 32.5 % (32.0-36.0); MCV 98 fL (80-95); MPV 10.2 fL (8.0-11.0); Monocytes % 12.6; Neutrophils % 70.7; Platelet Count 259 10^3/uL (130-400); RDW 12.7 % (11.8-14.1); RDW-SD 45.1 fL; WBC 3.96 10^3/uL (4.4-10.8)
[2023-06-15] MEDS: Normal Saline Flush 10 ML SYR IVP (09:33)
[2023-06-15] MEDS: Heparin 500 UNITS/5 ML SYRINGE (09:34)
[2023-06-15 09:48] LABS: ALT 17 U/L (16-63); AST 16 U/L (15-37); Albumin 3.1 g/dL (3.4-5.0); Alkaline Phosphatase 69 U/L (46-116); Anion Gap 4.3 mmol/L (3-11); BUN 27 mg/dL (7-18); Bilirubin, Total 0.5 mg/dL (0.2-1.0); CO2 30.7 mmol/L (21.0-32.0); Calcium 9.5 mg/dL (8.5-10.1); Chloride 98 mmol/L (98-107); Estimated GFR 84.57 (mL/min/1.73m2); Glucose 111 mg/dL (74-106); Magnesium 2.2 mg/dL (1.8-2.4); Potassium 4.3 mmol/L (3.5-5.1); Sodium 133 mmol/L (136-145); Total Protein 7.2 g/dL (6.4-8.2)
== END 2023-06-25 23:59 | disposition home or self-care (01) ==
LOC: INF 03:59
PROVIDERS: Preventive Medicine Undersea and Hyperbaric Medicine; PCP Internal Medicine; Visit Provider Internal Medicine Hematology & Oncology
DX: C10.9 Malignant neoplasm of oropharynx, unspecified (principal); Z45.2 Encounter for adjustment and management of vascular access device
CPT/HCPCS: 36591; 80053; 83735; 85025